=== PATIENT | female | born 1965 | race Caucasian/White ===

== ENCOUNTER 2020-07-31 11:31 | Emergency (ER) | payer BC, SELFPAY ==
[2020-07-31 11:32] VITALS: BP 142/75; PULSE 82; RESP 19; TEMP 36.7; O2SAT 96; BMI 33.2
--- NOTE | 2020-07-31 11:46 | CT_ITS ---
STUDY: CTA CHEST REASON FOR EXAM: Female, 54 years old. ELEV WBC, COVID 2 WKS AGO, SOB RADIATION DOSAGE (If Supplied By Facility): CTDIvol = ( 9.21 ) mGy, DLP = ( 419.09 ) mGycm TECHNIQUE: The examination was performed with the intravenous administration of IV 100mL Isovue-300. Post-processing of the angiographic images was performed, with multiplanar reformation and 3D reconstruction. Individualized dose optimization techniques were used for this CT. COMPARISON: None. FINDINGS: Bilateral breast prostheses. Normal enhancement of the main pulmonary artery and right and left pulmonary arteries. Normal enhancement of the bilateral peripheral pulmonary arteries. There is no demonstrated pulmonary embolism. Normal thoracic aorta and visualized great vessels. There is no demonstrated aortic dissection. Normal heart and pericardium. Normal mediastinum. Normal hilar regions. Normal visualized trachea and bronchi. The lungs are well expanded. Normal pulmonary parenchyma. Normal pleura. Normal chest wall structures. Normal osseous structures. Normal visualized upper abdomen. CT/CTA Chest W/WO Contrast IMPRESSION: Normal CTA chest examination, without a demonstrated pulmonary embolism or arterial dissection. Electronically Signed: Bjorn Hernandez MD at 13:21 EST , Service support ,
--- NOTE | 2020-07-31 11:47 | EKG12_ITS ---
Test Reason : SOB Blood Pressure : / mmHG Vent. Rate : 066 BPM Atrial Rate : 066 BPM P-R Int : 120 ms QRS Dur : 082 ms QT Int : 386 ms P-R-T Axes : 070 022 051 degrees QTc Int : 404 ms Normal sinus rhythm Normal ECG Confirmed by ROBBIE PEREZ, LEVI ([id number]), script editor DUARTE VAZQUEZ ([id number]) on 08/02/2020 1:27:40 PM Referred By: KHAI Confirmed By:LEVI AVALOS MD
--- NOTE | 2020-07-31 11:59 | ED.VISSUMM ---
- ER Visit Summary Date of Service: 07/31/20 Chief Complaint: Shortness of breath History of Present Illness: The patient is a 54 F presenting with shortness of breath. Patient states she was diagnosed with Covid on July 20. She has had fever, chills. She had sore throat which was treated by her primary care physician with amoxicillin and steroids. She states her sore throat is improving. She has mild shortness of breath and cough. She has chest pain with deep inspiration. She has nausea without vomiting. She has myalgias. She called her primary care physician today and was advised to come to the ED due to shortness of breath. Physical Examination: Vitals are stable. Patient is afebrile. Alert no acute distress. Pulse ox 96% on room air HEENT exam is unremarkable. Pharynx is normal Neck is supple. Lungs are clear and equal bilaterally. Heart is regular rate and rhythm. Abdomen is soft nontender nondistended. Extremities are unremarkable. Skin is warm and dry. No focal neurologic deficit. Remainder of exam is unremarkable. Emergency Department Course and Treatment: EKG is sinus rhythm rate is 66 with no acute ischemic changes. CBC shows white count 16.8. Chemistries unremarkable. Troponin negative. CTA chest shows normal CTA chest examination, without a demonstrated pulmonary embolism or arterial dissection. Pulse ox with ambulation is 96% on room air. Patient is currently on a 10-day course of Decadron and is advised to take this until complete. She is advised to return to the ED if she has worsening complaints. Disposition: Discharge home Impression: COVID-19 This note was generated with [employer] dictation software. It may contain incorrect words, spelling, and punctuation that were not noted in review of the chart prior to signing ED Disposition - Plan for ED Patient: Referrals: Reagan Fernández MD [Primary Care Provider] -
[2020-07-31 12:24] LABS: Absolute Lymphocyte Count 1.68 X10^3/uL (0.83-4.51); Absolute Neutrophil Count 12.9 X10^3/uL (2.0-7.7); Basophil# 0.02 X10^3/uL; Basophil% 0.1 % (0-1); Differential Indicated SCAN CRITERIA MET; Hematocrit 41.5 % (37-47); Hemoglobin 13.7 g/dL (12.0-15.0); Lymphocyte # 1.68 X10^3/ul (4.0); Mean Corpuscular Hgb 30.3 pg (27.0-32.0); Mean Corpuscular Volume 91.8 fL (81-99); Mean Platelet Vol. 8.7 fl (6.2-12.0); Monocyte# 1.91 X10^3/uL; Monocyte% 11.4 % (0-10); NRBC Flagged by Analyzer 0 % (0-5); Neutrophil # 12.94 X10^3/uL (2.7-7.7); POSITIVE DIFFERENTIAL YES; Platelet Count 414 K/mm3 (150-450); RBC Distribution Width CV 12.5 % (11.6-14.6); RBC Distribution Width SD 42.4 fl (35.1-43.9); Red Blood Count 4.52 M/mm3 (4.2-5.4); White Blood Count 16.8 K/mm3 (4.4-11.0)
[2020-07-31 12:42] LABS: Anion Gap 8 (5-15); BUN 22 mg/dL (7-18); BUN/Creat Ratio 28.2 RATIO (10-20); Calcium,Total 8.7 mg/dL (8.5-10.1); Chloride 102 mmol/L (98-107); Creatinine, Serum 0.78 mg/dL (0.55-1.02); EST Glomerular Filtration Rate 82 mL/min (>60); Est Glom Filt Rate - Afr Amer 99 mL/min (>60); Glucose 92 mg/dL (74-106); Potassium 3.6 mmol/L (3.5-5.1); Sodium Level 136 mmol/L (136-145)
[2020-07-31 13:17] VITALS: PULSE 60; RESP 14; O2SAT 95; O2SAT 98
--- NOTE | 2020-07-31 13:38 | ED.DEP ---
ED Disposition - Plan for ED Patient: Instructions: Coronavirus Disease 2019 (COVID-19): Overview Referrals: Reagan Fernández MD [Primary Care Provider] -
[2020-07-31 13:54] VITALS: BP 146/95
[2020-08-01 13:26] LABS: Pathologist Review Reviewed
== END 2020-07-31 13:54 | disposition home or self-care (01) ==
LOC: ED 12:51
PROVIDERS: Emergency Provider Emergency Medicine; PCP Family Medicine
DX: U07.1 COVID-19 (principal)
CPT/HCPCS: 71275; 80048; 84484; 85025; 93005; 99283; Q9967; A4216